=== PATIENT | female | born 2000 | race Hispanic/Latino ===

== ENCOUNTER 2022-02-22 01:28 | Emergency (ER) | payer OTHER ==
[~2022-02-22] VITALS: Ht 165.1 cm; Wt 88.9 kg
[2022-02-22] MEDS: 0.9%NACL 1000ML 1,000 ML IV SCH ×3 (02:26→04:30)
[2022-02-22] MEDS ORDERED: MECLIZINE HCL 12.5 MG TABLET PO ONE (02:30)
[2022-02-22] MEDS ORDERED: ONDANSETRON 4MG INJ IVP ONE (02:30)
[2022-02-22 02:37] LABS: BASOPHILS % (AUTO) 0.3 % (0.0-5.0); HEMATOCRIT 42.5 % (36-48); LYMPHOCYTES % (AUTO) 21.5 % (21.0-51.0); MEAN CORPUSCULAR HEMOGLOBIN 28.1 pg (27.0-33.0); MEAN CORPUSCULAR HGB CONC 32.7 g/dL (32.0-36.0); MEAN CORPUSCULAR VOLUME 85.9 fL (79-99); MONOCYTES % (AUTO) 6.4 % (3.0-13.0); NEUTROPHILS % (AUTO) 69.8 % (40.0-77.0); PLATELET COUNT (AUTO) 331 K/uL (130-400); RED BLOOD CELL COUNT(AUTO) 4.95 MIL/uL (4.00-5.50); RED CELL DISTRIBUTION WIDTH 12.7 % (11.0-15.5); WHITE BLOOD COUNT (AUTO) 14.4 K/uL (4.8-10.8)
[2022-02-22 02:54] LABS: ALBUMIN 3.9 g/dL (3.5-5.0); BILIRUBIN,TOTAL 0.9 mg/dL (0.2-1.0); CREATININE 0.7 mg/dL (0.5-1.5); POTASSIUM 3.9 mmol/L (3.5-5.1); TOTAL PROTEIN, SERUM 7.8 g/dL (6.0-8.3)
[2022-02-22] MEDS ORDERED: IOHEXOL-350 75 ML VIAL IV ONE (03:42)
[2022-02-22] MEDS ORDERED: ONDA22I PO (06:50)
[2022-02-22 07:24] VITALS: BP 127/85
[2022-02-22] MEDS ORDERED: MECL-262 PO (08:34)
[2022-02-22] MEDS ORDERED: ONDA4TAB10 PO (08:34)
== END 2022-02-22 08:42 | disposition home or self-care (01) ==
LOC: EDH 01:28
DX: R42 Dizziness and giddiness (principal); R63.0 Anorexia; R07.89 Other chest pain
CPT/HCPCS: 36415; 70450; 70496; 70498; 80053; 84703; 85025; 96361; 96374; 99285; J2405; J7030; Q9967

== ENCOUNTER 2022-03-08 16:56 | Inpatient (IN) | payer OTHER ==
[~2022-03-08] VITALS: Ht 165.1 cm; Wt 90.4 kg
[~2022-03-08 16:56] MED LIST: MECL-262 PO; ONDA22I PO; ONDA4TAB10 PO
[2022-03-08 17:45] LABS: BASOPHILS % (AUTO) 0.2 % (0.0-5.0); EOSINOPHILS % (AUTO) 1.1 % (0.0-8.0); HEMATOCRIT 39.7 % (36-48); LYMPHOCYTES % (AUTO) 17.5 % (21.0-51.0); MEAN CORPUSCULAR HEMOGLOBIN 28.4 pg (27.0-33.0); MEAN CORPUSCULAR VOLUME 86.1 fL (79-99); MONOCYTES % (AUTO) 6.6 % (3.0-13.0); NEUTROPHILS % (AUTO) 74.3 % (40.0-77.0); PLATELET COUNT (AUTO) 307 K/uL (130-400); RED BLOOD CELL COUNT(AUTO) 4.61 MIL/uL (4.00-5.50); WHITE BLOOD COUNT (AUTO) 10.1 K/uL (4.8-10.8)
[2022-03-08 17:47] LABS: APPEARANCE,URINE Clear (CLEAR); BILIRUBIN,URINE Negative (NEGATIVE); COLOR,URINE Yellow (YELLOW); GLUCOSE, URINE (UA) Negative (NEGATIVE); KETONES,URINE Negative (NEGATIVE); LEUKOCYTE ESTERASE ,URINE Negative (NEGATIVE); NITRATE,URINE Negative (NEGATIVE); OCCULT BLOOD,URINE Negative (NEGATIVE); PH,URINE 5.5 (5.0-8.0); PROTEIN,URINE Negative (NEGATIVE); UROBILINOGEN,URINE 0.2 mg/dL (0.2-1.0)
[2022-03-08] MEDS ORDERED: ADENOSINE 6MG VIAL IV ONE ×2 (17:47→18:00)
[2022-03-08] MEDS ORDERED: 0.9%NACL 1000ML 1,000 ML IV SCH ×2 (18:00→19:00)
[2022-03-08 18:04] LABS: CREATININE 0.7 mg/dL (0.5-1.5); POTASSIUM 3.6 mmol/L (3.5-5.1)
[2022-03-08 18:09] LABS: ALBUMIN 3.8 g/dL (3.5-5.0); BILIRUBIN,TOTAL 0.7 mg/dL (0.2-1.0); TOTAL PROTEIN, SERUM 7.7 g/dL (6.0-8.3)
[2022-03-08] MEDS ORDERED: LORAZEPAM 2 MG/ML 1 ML VIAL ONE (18:21)
[2022-03-08] MEDS ORDERED: LORAZEPAM 2 MG/ML 1 ML VIAL IVP ONE (18:30)
[2022-03-08] MEDS ORDERED: METOPROLOL TARTRATE 1 MG/ML 5ML VIAL IV ONE ×3 (18:50→19:00)
[2022-03-08] MEDS ORDERED: MORPHINE 2 MG SYG IV PRN (19:30)
[2022-03-08] MEDS ORDERED: LABETALOL 20MG VIAL IV PRN (19:30)
[2022-03-08] MEDS ORDERED: NITROGLYCERIN 0.4 MG SL TAB SL PRN (19:30)
[2022-03-08] MEDS ORDERED: MORPHINE 4 MG SYG IV PRN (19:30)
[2022-03-08] MEDS ORDERED: ACETAMINOPHEN 325 MG TAB PO PRN (19:30)
[2022-03-08 19:58] LABS: MAGNESIUM 1.9 mg/dL (1.80-2.40); PHOSPHORUS 2.3 mg/dL (2.5-4.9)
[2022-03-08] MEDS ORDERED: METOPROLOL TARTRATE 1 MG/ML 5ML VIAL IV PRN (20:30)
[2022-03-08 21:04] LABS: AMPHET/METH SCREEN,URINE NEGATIVE (NEGATIVE); BARBITURATE SCREEN, URINE NEGATIVE (NEGATIVE); BENZODIAZEPINES SCREEN,URINE NEGATIVE (NEGATIVE); CANNABINOID SCREEN,URINE NEGATIVE (NEGATIVE); COCAINE SCREEN,URINE NEGATIVE (NEGATIVE); OPIATE SCREEN,URINE NEGATIVE (NEGATIVE); PHENCYCLIDINE SCREEN,URINE NEGATIVE (NEGATIVE)
[2022-03-08] MEDS: 0.9%NACL 1000ML 1,000 ML IV SCH (22:30)
[2022-03-08] MEDS: FAMOTIDINE 20MG TAB PO SCH (22:31)
[2022-03-08 22:55] VITALS: BP 122/75
[2022-03-08] MEDS ORDERED: HYDR-3421 PO (23:38)
[2022-03-09] VITALS (7 sets, daily range): BP systolic 111–142; BP diastolic 72–92
[2022-03-09 05:48] LABS: BASOPHILS % (AUTO) 0.5 % (0.0-5.0); EOSINOPHILS % (AUTO) 1.9 % (0.0-8.0); HEMATOCRIT 34.8 % (36-48); LYMPHOCYTES % (AUTO) 33.7 % (21.0-51.0); MEAN CORPUSCULAR HEMOGLOBIN 28.9 pg (27.0-33.0); MEAN CORPUSCULAR HGB CONC 32.8 g/dL (32.0-36.0); MEAN CORPUSCULAR VOLUME 88.1 fL (79-99); MONOCYTES % (AUTO) 6.2 % (3.0-13.0); NEUTROPHILS % (AUTO) 57.3 % (40.0-77.0); PLATELET COUNT (AUTO) 256 K/uL (130-400); RED BLOOD CELL COUNT(AUTO) 3.95 MIL/uL (4.00-5.50); RED CELL DISTRIBUTION WIDTH 13.1 % (11.0-15.5); WHITE BLOOD COUNT (AUTO) 8.5 K/uL (4.8-10.8)
[2022-03-09 05:57] LABS: CREATININE 0.7 mg/dL (0.5-1.5)
[2022-03-09] MEDS: FAMOTIDINE 20MG TAB PO SCH ×2 (10:28→20:23)
[2022-03-09] MEDS: ENOXAPARIN SODIUM 40 MG/0.4 ML SYRINGE SQ SCH (10:29)
[2022-03-09] MEDS: 0.9%NACL 1000ML 1,000 ML IV SCH ×2 (10:33→15:30)
[2022-03-09] MEDS ORDERED: CEFTRIAXONE 1G VIAL IVP SCH (20:30)
[2022-03-09] MEDS ORDERED: 0.9% NACL 250ML 250 ML ONE ×2 (22:47→22:49)
[2022-03-09] MEDS: DOXYCYCLINE 100MG+NS 250ML IV SCH (22:56)
[2022-03-09] MEDS: METOPROLOL TARTRATE 25 MG TAB PO SCH (22:56)
[2022-03-10] VITALS (7 sets, daily range): BP systolic 100–126; BP diastolic 62–80
[2022-03-10] MEDS ORDERED: NITROGLYCERIN 1GM OINT 1 INCH/1GM TD ONE (00:30)
[2022-03-10] MEDS ORDERED: ASPIRIN 81MG CHEW TAB PO ONE (00:30)
[2022-03-10 04:00] LABS: HEMOGLOBIN A1C 5.8 % (4.0-6.0)
[2022-03-10 04:26] LABS: CREATININE 0.6 mg/dL (0.5-1.5); MAGNESIUM 1.7 mg/dL (1.80-2.40); PHOSPHORUS 3.1 mg/dL (2.5-4.9); POTASSIUM 3.7 mmol/L (3.5-5.1)
[2022-03-10] MEDS ORDERED: SODIUM CHLORIDE 3% FOR INHALATION 4 ML/AMP VIAL.NEB IH ONE ×4 (07:04→13:48)
[2022-03-10] MEDS ORDERED: METO25 PO (07:46)
[2022-03-10] MEDS ORDERED: DOXY-252 PO (07:46)
[2022-03-10] MEDS ORDERED: ASPIRIN 81MG CHEW TAB PO SCH (09:00)
[2022-03-10] MEDS: DOXYCYCLINE 100MG+NS 250ML IV SCH (09:55)
[2022-03-10] MEDS: FAMOTIDINE 20MG TAB PO SCH (09:56)
[2022-03-10] MEDS: ENOXAPARIN SODIUM 40 MG/0.4 ML SYRINGE SQ SCH (09:56)
[2022-03-10] MEDS: METOPROLOL TARTRATE 25 MG TAB PO SCH (09:56)
[2022-03-10] MEDS ORDERED: IOHEXOL-350 75 ML VIAL IV ONE (12:46)
[2022-03-10] MEDS ORDERED: MAGNESIUM 2GM PREMIX 50ML 50 ML IV SCH (15:30)
== END 2022-03-10 15:15 | disposition home or self-care (01) | DRG 310 ==
LOC: EDH 16:56 → INTOOBSV 16:57 → EDHIP 16:57 → OBSVTOIN 16:57 → 4CH 23:00
PROVIDERS: ADMIT Internal Medicine; ATTEND Internal Medicine
DX: I47.9 Paroxysmal tachycardia, unspecified (principal); L83 Acanthosis nigricans; Z20.822 Contact with and (suspected) exposure to COVID-19; E66.9 Obesity, unspecified; F41.9 Anxiety disorder, unspecified; Z68.33 Body mass index [BMI] 33.0-33.9, adult; J45.20 Mild intermittent asthma, uncomplicated
CPT/HCPCS: 36415; 71045; 71275; 80048; 80053; 80305; 81003; 81025; 82533; 83001; 83002; 83036; 83735; 83835; 84100; 84439; 84443; 84481; 84484; 85025; 85378; 87071; 87077; 87186; 87205; 87635; 87804; 93005; 93306; 94640; 99291; C9803; G0378; J0153; J0696; J1650; J2060; J3490; J7050; Q9967